=== PATIENT | female | born 1975 | race Caucasian/White ===

== ENCOUNTER 2017-06-20 18:40 | Emergency (ER) | payer MEDICAID ==
[~2017-06-20] VITALS: Ht 149.9 cm; Wt 57.0 kg
[~2017-06-20 18:40] MED LIST: LEV500T PO
[2017-06-20 19:18] LABS: BASOPHILS % (AUTO) 0.3 % (0-1); EOSINOPHILS # (AUTO) 0.3 X10'3 (0-0.9); EOSINOPHILS % (AUTO) 2.1 % (0-6); HEMATOCRIT 39.1 % (35.0-45.0); HEMOGLOBIN 13.5 g/dl (12.0-16.0); LYMPHOCYTES # (AUTO) 1.7 X10'3 (1.1-4.8); LYMPHOCYTES % (AUTO) 13.2 % (21-51); MEAN CORPUSCULAR HEMOGLOBIN 32.1 PG (27.0-31.0); MEAN CORPUSCULAR HGB CONC 34.5 % (33.0-36.5); MEAN PLATELET VOLUME 8.1 FL (7.4-10.4); MONOCYTES # (AUTO) 0.6 X10'3 (0-0.9); NEUTROPHILS # (AUTO) 10.1 X10'3 (1.8-7.7); NEUTROPHILS % (AUTO) 79.4 % (42-75); PLATELET COUNT 274 X10'3 (140-440); RED CELL DISTRIBUTION WIDTH 13.5 % (11.5-14.5); WHITE BLOOD COUNT 12.7 X10'3 (4.5-11.0)
[2017-06-20 19:28] LABS: PROTHROMBIN TIME 10.2 SECONDS (9.0-12.0)
[2017-06-20 19:32] LABS: ALANINE AMINOTRANSFERASE 20 U/L (12-78); ALBUMIN 4.1 G/DL (3.4-5.0); ALKALINE PHOSPHATASE 61 IU/L (46-116); ANION GAP 11 (8-16); ASPARTATE AMINO TRANSFERASE 16 U/L (10-37); BILIRUBIN,TOTAL 0.7 MG/DL (0.1-1.0); BLOOD UREA NITROGEN 13 MG/DL (7-18); BUN/CREATININE RATIO 23.6 (6.6-38.0); CALCIUM 9.5 MG/DL (8.5-10.1); CHLORIDE 102 MMOL/L (99-107); CREATININE 0.55 MG/DL (0.40-0.90); GLUCOSE 119 MG/DL (70-104); POTASSIUM 3.7 MMOL/L (3.5-5.1); SODIUM 138 MMOL/L (135-145); TOTAL CARBON DIOXIDE 25.3 MMOL/L (24-32); TOTAL PROTEIN 8.2 G/DL (6.4-8.2); eGFR > 90 ML/MIN
[2017-06-20 19:49] LABS: CLARITY,URINE Cloudy (Clear); COLOR,URINE Dark Yellow (Yellow); GLUCOSE, URINE Negative (Neg); KETONES,URINE Trace mg/dl (Neg); LEUKOCYTE ESTERASE ,URINE Negative (Neg); NITRITES, URINE Negative (Neg); OCCULT BLOOD,URINE Negative (Neg); PROTEIN,URINE Negative (Neg); URINE HCG NEGATIVE (NEG); UROBILINOGEN,URINE 0.2 E.U/dL (0.2-1.0)
[2017-06-20 19:59] LABS: UA COLLECTION TYPE CLN CATCH MIDSTREAM
[2017-06-20 20:07] LABS: RBC,URINE 0-2 /HPF (0-2); WBC,URINE 0-4 /HPF (0-4)
[2017-06-20 20:08] LABS: AMORPHOUS PHOSPHATES 3+; BACTERIA,URINE FEW /HPF (Neg); MUCUS STRANDS FEW /LPF (Neg); SQUAMOUS EPITHELIAL CELL,UR MODERATE /LPF (FEW)
[2017-06-20] MEDS ORDERED: morphine 4 MG/ML inj SYRINge IV ONE (22:00)
[2017-06-20] MEDS ORDERED: ondansetron/PF 4mg/2ml inj IV ONE (22:00)
[2017-06-20] MEDS ORDERED: normal saline 1000ML IV soln IVB ONE (22:00)
[2017-06-21] MEDS ORDERED: POLY119P2 PO (00:38)
[2017-06-21] MEDS ORDERED: HYDROcodone/acetaminophen 5mg/325mg tablet PO ONE (00:40)
[2017-06-21 01:05] VITALS: BP 123/89
== END 2017-06-21 01:45 | disposition home or self-care (01) ==
LOC: ER 18:41
DX: R10.9 Unspecified abdominal pain (principal); J45.909 Unspecified asthma, uncomplicated; Z88.5 Allergy status to narcotic agent; Z56.0 Unemployment, unspecified
CPT/HCPCS: 36415; 74176; 80053; 81001; 81025; 83605; 84145; 85025; 85610; 87040; 96361; 96374; 99285; J2270; J7030

== ENCOUNTER 2020-07-26 18:02 | Emergency (ER) | payer MEDICAID ==
[~2020-07-26] VITALS: Ht 149.9 cm; Wt 51.4 kg
[~2020-07-26 18:02] MED LIST changes: +POLY119P2 PO
[2020-07-26 18:34] VITALS: BP 118/94
== END 2020-07-26 19:41 | disposition home or self-care (01) ==
LOC: ER 18:02
DX: R05 Cough (principal); R53.83 Other fatigue; Z20.822 Contact with and (suspected) exposure to COVID-19; J45.909 Unspecified asthma, uncomplicated; F41.9 Anxiety disorder, unspecified; Z98.890 Other specified postprocedural states; Z72.89 Other problems related to lifestyle; Z56.0 Unemployment, unspecified; Z88.5 Allergy status to narcotic agent; Z79.899 Other long term (current) drug therapy
CPT/HCPCS: 87635; 99283; C9803

== ENCOUNTER 2021-05-11 07:02 | Emergency (ER) | payer MEDICAID ==
[~2021-05-11] VITALS: Ht 149.9 cm; Wt 59.1 kg
[2021-05-11 07:09] VITALS: BP 158/106
[2021-05-11] MEDS ORDERED: ALBU6.7H9 INH (09:15)
[2021-05-11] MEDS ORDERED: PRED20TA PO (09:15)
[2021-05-11] MEDS ORDERED: BUDE180A INH (09:15)
== END 2021-05-11 09:44 | disposition home or self-care (01) ==
LOC: ER 07:02
DX: U07.1 COVID-19 (principal); J45.20 Mild intermittent asthma, uncomplicated; R50.9 Fever, unspecified; R05.9 Cough, unspecified; R06.02 Shortness of breath; F41.9 Anxiety disorder, unspecified; F17.200 Nicotine dependence, unspecified, uncomplicated; Z98.890 Other specified postprocedural states; Z72.89 Other problems related to lifestyle; Z56.0 Unemployment, unspecified; Z88.5 Allergy status to narcotic agent; Z79.2 Long term (current) use of antibiotics; Z79.899 Other long term (current) drug therapy
CPT/HCPCS: 71045; 87635; 99284; C9803

== ENCOUNTER 2021-11-28 20:19 | Emergency (ER) | payer MEDICAID ==
[~2021-11-28] VITALS: Ht 147.3 cm; Wt 51.8 kg
[~2021-11-28 20:19] MED LIST changes: +ALBU6.7H9 INH; +BUDE180A INH
[2021-11-28 20:21] VITALS: BP 180/93
[2021-11-28] MEDS ORDERED: CEPH500C81 PO (21:42)
== END 2021-11-28 22:12 | disposition home or self-care (01) ==
LOC: ER 20:20
DX: N39.0 Urinary tract infection, site not specified (principal); H10.9 Unspecified conjunctivitis; J45.909 Unspecified asthma, uncomplicated; Z88.5 Allergy status to narcotic agent; Z56.0 Unemployment, unspecified
CPT/HCPCS: 99283

== ENCOUNTER 2021-12-03 19:16 | Emergency (ER) | payer MEDICAID ==
[~2021-12-03] VITALS: Ht 147.3 cm; Wt 52.3 kg
[~2021-12-03 19:16] MED LIST changes: +CEPH500C81 PO
[2021-12-03] MEDS ORDERED: proparacaine 0.5% ophthalmic drops 15ml EACHEYE ONE (21:45)
[2021-12-03] MEDS ORDERED: NEO/5DRO7 EACHEYE (22:08)
== END 2021-12-03 22:24 | disposition home or self-care (01) ==
LOC: ER 19:17
DX: S05.02XA Injury of conjunctiva and corneal abrasion without foreign body, left eye, initial encounter (principal); S05.01XA Injury of conjunctiva and corneal abrasion without foreign body, right eye, initial encounter; F41.9 Anxiety disorder, unspecified; Z59.00 Homelessness unspecified; Z88.5 Allergy status to narcotic agent; Z79.899 Other long term (current) drug therapy; J45.909 Unspecified asthma, uncomplicated; Z98.890 Other specified postprocedural states; X58.XXXA Exposure to other specified factors, initial encounter; Y93.89 Activity, other specified; Y92.89 Other specified places as the place of occurrence of the external cause; Y99.8 Other external cause status
CPT/HCPCS: 99283

== ENCOUNTER 2022-01-23 13:35 | Emergency (ER) | payer MEDICAID ==
[~2022-01-23] VITALS: Ht 148.6 cm; Wt 52.0 kg
[~2022-01-23 13:35] MED LIST changes: +ALBU6.7H14 INH; -ALBU6.7H9 INH; -CEPH500C81 PO; +NEO/5DRO7 EACHEYE
[2022-01-23 13:41] VITALS: BP 163/107
[2022-01-23 15:19] LABS: CLARITY,URINE CLEAR (Clear); COLOR,URINE YELLOW (Yellow); GLUCOSE, URINE NEGATIVE (Neg); KETONES,URINE NEGATIVE (Neg); LEUKOCYTE ESTERASE ,URINE NEGATIVE (Neg); NITRITES, URINE NEGATIVE (Neg); OCCULT BLOOD,URINE SMALL (Neg); PROTEIN,URINE NEGATIVE (Neg); URINE HCG NEGATIVE (NEG); UROBILINOGEN,URINE 0.2 E.U/dL (0.2-1.0)
[2022-01-23 15:20] LABS: UA COLLECTION TYPE CLN CATCH MIDSTREAM
[2022-01-23 15:25] LABS: BACTERIA,URINE NONE SEEN /HPF (Neg); MUCUS STRANDS NONE SEEN /LPF (Neg); RBC,URINE 0-2 /HPF (0-2); SQUAMOUS EPITHELIAL CELL,UR FEW /LPF (FEW); WBC,URINE 0-4 /HPF (0-4)
== END 2022-01-23 15:32 | disposition left against medical advice (07) ==
LOC: ER 13:36
DX: J02.9 Acute pharyngitis, unspecified (principal); J45.909 Unspecified asthma, uncomplicated; Z88.5 Allergy status to narcotic agent; Z98.890 Other specified postprocedural states; Z56.0 Unemployment, unspecified
CPT/HCPCS: 81001; 81025; 99283

== ENCOUNTER → 2023-09-18 | Outpatient (CLI) | payer MEDICAID | END | disposition home or self-care (01) | LOC: RAD 13:05 | PROVIDERS: ATTEND Physician Assistant | DX: M54.2 Cervicalgia (principal) | CPT/HCPCS: 72050 ==